=== PATIENT | female | born 1950 | race Caucasian/White ===

== ENCOUNTER → 2016-03-28 | Outpatient (CLI) | payer MEDICARE, OTHER | END | disposition home or self-care (01) | LOC: GMAB 10:23 | PROVIDERS: ATTEND Family Medicine | DX: E11.9 Type 2 diabetes mellitus without complications (principal); M54.5 Low back pain; E03.9 Hypothyroidism, unspecified ==

== ENCOUNTER → 2016-04-04 | Outpatient (CLI) | payer MEDICARE, OTHER | LOC: SL 20:21 | PROVIDERS: ATTEND Family Medicine | DX: G47.33 Obstructive sleep apnea (adult) (pediatric) (principal) ==